=== PATIENT | male | born 1970 | race Caucasian/White ===

== ENCOUNTER 2017-02-02 15:04 | Emergency (ER) | payer BC ==
[2017-02-02] MEDS ORDERED: HEPARIN SODIUM 1000 UNIT/1 ML 10ML VIAL IVP ONE (15:20)
[2017-02-02] MEDS ORDERED: DILTIAZEM 25MG/5ML VIAL IV ONE (15:20)
--- NOTE | 2017-02-02 15:20 | Emergency Department Record ---
History of Present Illness - General Chief Complaint: Rapid heartbeat Stated Complaint: HIGH HEART RATE Time Seen by Provider: 02/02/17 15:09 Source: Patient Mode of Arrival: Ambulatory Limitations: No limitations - History of Present Illness Initial Comments: 46 yo male presents with rapid heart rate that was noted today. The patient has a history of HTN and elevated cholesterol. He is a patient of Dr White of [facility]. He recently had a change in medications. He was concerned about muscle cramps due to his medications. He came to the hospital today to have labs drawn regarding side effects of those medications. No chest pain. He has not been short of breath this week but he has had a dry non productive cough. He states walking or activity does not effect his breathing. He states he feels as normal as any other day except he can feel the rapid rate. No edema. He has been seen in the past and had event monitors that demonstrated brief AFib in 2016. The patient states that he will have palpitations several times a week that are brief in nature. Complaint: Rapid heart beat -: Days(s) Context: Occurred during rest Arrythmia History: Atrial fibrillation Associated Symptoms: Cough, Shortness of breath - Related Data Home Medications Medication Instructions Recorded Confirmed Last Taken Atorvastatin Calcium 40 mg PO DAILY 30 Days 02/02/17 02/02/17 Unknown Tadalafil [Cialis] 20 mg PO ASDIR 30 Days 02/02/17 02/02/17 Unknown Allergies Allergy/AdvReac Type Severity Reaction Status Date / Time No Known Drug Allergies Allergy Verified 02/02/17 15:14 Review of Systems Constitutional: Denies: Chills, Fever, Weakness Eyes: Denies: Eye discharge ENT: Reports: Throat pain. Denies: Congestion Respiratory: Reports: Cough (dry cough a few days). Denies: Dyspnea, Hemoptysis , Stridor, Wheezes Cardiovascular: Reports: Arrhythmia, Palpitations. Denies: Chest pain, Edema, Syncope Endocrine: Denies: Fatigue, Polydipsia, Polyuria Gastrointestinal: Denies: Abdominal pain, Diarrhea, Nausea, Vomiting Genitourinary: Denies: Dysuria, Hematuria, Urgency Musculoskeletal: Denies: Arthralgia, Back pain, Joint swelling, Myalgia, Neck pain Skin: Denies: Bruising, Change in color, Rash Neurological: Denies: Confusion, Headache, Weakness Psychiatric: Denies: Anxiety Hematological/Lymphatic: Denies: Blood Clots, Easy bleeding, Easy bruising, Swollen glands Past Medical History - SOCIAL HISTORY Smoking Status: Current every day smoker Drug Use: None - RESPIRATORY Hx Bronchitis: Yes Hx Pulmonary Embolism: No - CARDIOVASCULAR Hx Abnormal EKG: Yes (today, new onset a-fib) Hx Hypertension: Yes - NEURO Hx Neuro Disorders: No - GI Hx Reflux: Yes - Hx Genitourinary Disorders: No - ENDOCRINE Hx Endocrine Disorders: No - MUSCULOSKELETAL Hx Musculoskeletal Disorders: No - PSYCH Hx Psych Problems: No - HEMATOLOGY/ONCOLOGY Hx Hematology/Oncology Disorders: No Family Medical History Hx Diabetes: Grandparents Hx Heart Disease: Grandparents Physical Exam - General General Appearance: Alert, Oriented x3, Cooperative, No acute distress, Other ( Diaphoretic) Limitations: No limitations - Head Head exam: Atraumatic, Normocephalic, Normal inspection - Eye Eye exam: Normal appearance, PERRL. negative: Conjunctival injection, Scleral icterus - ENT ENT exam: Normal exam, Mucous membranes moist, Normal external ear exam, Normal orophraynx, TM's normal bilaterally Ear exam: Normal external inspection. negative: External canal tenderness Nasal Exam: Normal inspection. negative: Discharge, Sinus tenderness Mouth exam: Normal external inspection, Tongue normal Teeth exam: Normal inspection. negative: Dental caries Throat exam: Tonsillar erythema. negative: Normal inspection, Tonsillomegaly, Tonsillar exudate, R peritonsillar mass, L peritonsillar mass - Neck Neck exam: Normal inspection, Full ROM. negative: Tenderness - Respiratory Respiratory exam: negative: Accessory muscle use, Respiratory distress, Wheezes - Cardiovascular Cardiovascular Exam: Tachycardia - GI/Abdominal GI/Abdominal exam: Soft - Rectal Rectal exam: Deferred - exam: Deferred - Extremities Extremities exam: Normal inspection, Full ROM, Normal capillary refill. negative: Pedal edema, Tenderness - Back Back exam: Reports: Normal inspection, Full ROM. Denies: Muscle spasm, Rash noted, Tenderness - Neurological Neurological exam: Alert, Normal gait, Oriented X3, Reflexes normal - Psychiatric Psychiatric exam: Normal affect, Normal mood - Skin Skin exam: Dry, Intact, Normal color, Warm Course - Reevaluation(s) Reevaluation #1: the patient had labs prior arrival in the ED drwn at 14:01 CMP Glucose 118 BUN 12 and CR 0.8 K 3.3 CPK 289 02/02/17 15:33 Reevaluation #2: The CXR he had prior to arrival was negative for acute process The troponin is negative at 0.012 The BNP is elevated at 1080. The HR remains at 147-150 He is on Cardizem and Heparin 02/02/17 15:49 Reevaluation #3: Dr Stephens was paged. Awaiting call back [facility] contacted in the meantime to discuss with [facility] 02/02/17 16:05 Reevaluation #4: I SW Dr Lu of EP for [facility] He will accept the patient for transfer for the arrhythmia. 02/02/17 16:11 Strep screen is negative 02/02/17 16:51 Procedures - EKG Initial Date: 02/02/17 Time: 15:06 EKG: Abnormal EKG EKG Detail: Rate 150, Aflutter, RBBB, diffuse t changes Medical Decision Making - Lab Data Result diagrams: 02/02/17 15:00 Disposition Disposition: Transfer Clinical Impression: Atrial flutter Qualifiers: Atrial flutter type: typical Qualified Code(s): I48.3 - Typical atrial flutter Disposition: Acute Care Hospital Transfer Transfer To: [facility] Reason For Transfer: Atrial Flutter Accepting Physician: Dr Lu Time Discussed w/Accepting Physician: 16:13 Condition: (2) Stable Forms: Patient Portal Access Time of Disposition: 16:13
[2017-02-02] MEDS ORDERED: HEPARIN SODIUM/D5W 25,000 UNITS/500 ML BAG IV SCH (15:30)
[2017-02-02] MEDS ORDERED: DILTIAZEM HCL 125 MG in 0.9 % SODIUM CHLORIDE 100ML 100 ML IV SCH (15:30)
[2017-02-02 15:33] LABS: INR 0.92; PARTIAL THROMBOPLASTIN TIME 31.8 SECONDS (24.5-39.1); PROTHROMBIN TIME (PATIENT) 10.4 SECONDS (9.5-12.1)
[2017-02-02 15:40] LABS: CKMB 0.7 ug/L (0-6)
[2017-02-02 15:45] LABS: TROPONIN I < 0.012 ng/mL (0.00-0.034)
[2017-02-02 15:55] LABS: EOS % 2.6 % (0-6); GRAN % 65.6 % (47-80); HEMATOCRIT 45.9 % (42.0-52.0); HEMOGLOBIN 15.7 gm/dl (14.0-18.0); LYMPH % 16.3 % (16-45); MEAN CELL VOLUME 90.4 fl (81-97); MEAN CORPUSCULAR HEMOGLOBIN 30.9 pg (27-33); MEAN CORPUSCULAR HGB CONC 34.2 g/dl (32-36); MONO % 14.5 % (0-9); PLATELET COUNT 212 K/uL (130-400); RED BLOOD COUNT 5.08 M/uL (4.40-5.70); RED CELL DISTRIBUTION WIDTH 14.3 % (11.5-14.5); WHITE BLOOD COUNT W/O DIFF 8.9 K/uL (4.2-12.2)
[2017-02-02] MEDS ORDERED: POTASSIUM BICARB./CIT AC 25 MEQ EFF.TAB PO STA (15:56)
[2017-02-02 16:34] LABS: THYROID STIMULATING HORMONE 2.28 uIU/ml (0.465-4.68)
== END 2017-02-02 17:42 | disposition short-term general hospital (02) ==
LOC: ER 15:04
DX: I48.3 Typical atrial flutter (principal); R05 Cough; R06.02 Shortness of breath; I10 Essential (primary) hypertension; F17.210 Nicotine dependence, cigarettes, uncomplicated
CPT/HCPCS: 82553; 83735; 83880; 84443; 84484; 85025; 85610; 85730; 87880; 93005; 93010; 96365; 96366; 96368; 96375; 99285

== ENCOUNTER 2017-07-04 10:28 | Emergency (ER) | payer BC ==
--- NOTE | 2017-07-04 10:52 | Emergency Department Record ---
History of Present Illness - General Chief Complaint: Laceration(s) Stated Complaint: FOREHEAD GASH Time Seen by Provider: 07/04/17 10:32 Source: Patient Mode of Arrival: Ambulatory Limitations: No limitations - History of Present Illness Initial Commments: The patient is here due to getting hit in the forehead by a gate of a truck that one of his cows kicked open. He was closing the truck gate when the cow kicked the gate open. He then fell backwards onto the ground and got up immediately. He has no LOC and has had no nausea, vomiting, or dizziness since. He does have a mild CARRERA and also denies any neck pain. The patient did drive himself to the ER and is on Xarelto for intermittent Afib. His Immun. are UTD. Onset/Timin -: Minutes(s) Context: Accidental Associated Symptoms: None - Related Data Previous Rx's Medication Instructions Recorded Amoxicillin/Potassium Clav 1 tab PO BID #14 tab 07/04/17 [Augmentin 875-125 Tablet] Allergies Allergy/AdvReac Type Severity Reaction Status Date / Time No Known Drug Allergies Allergy Unverified 06/22/17 10:26 Review of Systems Constitutional: Denies: Chills, Fever Eyes: Denies: Eye discharge ENT: Denies: Congestion, Other Respiratory: Denies: Dyspnea Past Medical History - SOCIAL HISTORY Smoking Status: Current every day smoker Drug Use: None - RESPIRATORY Hx Bronchitis: Yes Hx Pulmonary Embolism: No - CARDIOVASCULAR Hx Abnormal EKG: Yes (today, new onset a-fib) Hx Hypertension: Yes - NEURO Hx Neuro Disorders: No - GI Hx Reflux: Yes - Hx Genitourinary Disorders: No - ENDOCRINE Hx Endocrine Disorders: No - MUSCULOSKELETAL Hx Musculoskeletal Disorders: No - PSYCH Hx Psych Problems: No - HEMATOLOGY/ONCOLOGY Hx Hematology/Oncology Disorders: No Family Medical History Hx Diabetes: Grandparents Hx Heart Disease: Grandparents Physical Exam - General General Appearance: Alert, Oriented x3, Cooperative, No acute distress - Head Head exam: Normocephalic. negative: Atraumatic (There is a large stellate laceration to his mid forehead.), Normal inspection Image of Face/Head: 1 - H - shaped Stellate laceration total 6 cm's - Eye Eye exam: Normal appearance, PERRL - Neck Neck exam: Normal inspection, Full ROM. negative: Tenderness (There is no Cspine tenderness and no pain with ROM.) - Respiratory Respiratory exam: Normal lung sounds bilaterally. negative: Respiratory distress - Cardiovascular Cardiovascular Exam: Regular rate, Normal rhythm, Normal heart sounds - GI/Abdominal GI/Abdominal exam: Soft, Normal bowel sounds. negative: Tenderness - Extremities Extremities exam: Normal inspection, Full ROM, Normal capillary refill. negative: Tenderness - Neurological Neurological exam: Alert, Normal gait, Oriented X3. negative: Abnormal gait, Motor sensory deficit Course - Reevaluation(s) Reevaluation #1: Procedure note: The large stellate lac was anesth. with 5 cc's Lido 1% with Epi. The wound was prepped sterile fashion and lavaged with sterile saline. The wound was down to the bone but due to the Xarelto I was unable to place deep sutures due to the extent of the trauma and extensive bleeding. I did place 18 4.0 sutures to close the laceration. 07/04/17 12:20 Reevaluation #2: The patient is doing well. He denies any headache or nausea. I did explain to him due to the extent of the head trauma he will need to be admitted to the hospital overnight for monitoring. I did discuss the case with Dr. Dunn in the ER at [facility] who does accept him their. I also did discuss the case with Dr. Lira for Trauma and he also agrees with the transfer and will admit him for trauma. 07/04/17 12:18 Reevaluation #3: The patient is doing very well at this time. He denies any CARRERA or nausea. 07/04/17 12:22 Medical Decision Making - Data Complexity MDM Data: Labs Ordered and/or Reviewed, X-Ray Ordered and/or Reviewed - Lab Data Result diagrams: 07/04/17 10:38 07/04/17 10:38 - Radiology Data Radiology results: Report reviewed (Head CT: Neg for acute intracranial abnormality or skull fx, Positive maxillary sinusitis.) Disposition Disposition: Transfer Clinical Impression: Head injury due to trauma Qualifiers: Encounter type: initial encounter Qualified Code(s): S09.90XA - Unspecified injury of head, initial encounter Disposition: Acute Care Hospital Transfer Transfer To: [facility] Reason For Transfer: Trauma Accepting Physician: Shaun/ Soraya Time Discussed w/Accepting Physician: 12:20 Condition: (2) Stable Instructions: Laceration (ED) Prescriptions: Amoxicillin/Potassium Clav [Augmentin 875-125 Tablet] 1 tab PO BID #14 tab Forms: Patient Portal Access Time of Disposition: 12:20 Quality - Quality Measures Quality Measures: N/A - Blood Pressure Screening View Details: Yes Does Patient Have Any of the Following: No, Active Dx of HTN Blood Pressure Classification: Hypertensive Reading Systolic Measurement: 150 Diastolic Measurement: 103 Screening for High Blood Pressure: Patient Exclusion, Hx of HTN [G9744]
[2017-07-04 10:55] LABS: BASO % 0.6 % (0-6); EOS % 5.4 % (0-6); GRAN % 58.7 % (47-80); HEMATOCRIT 43.8 % (42.0-52.0); HEMOGLOBIN 15.1 gm/dl (14.0-18.0); LYMPH % 26.6 % (16-45); MEAN CORPUSCULAR HEMOGLOBIN 30.7 pg (27-33); MEAN CORPUSCULAR HGB CONC 34.5 g/dl (32-36); MEAN PLATELET VOLUME 10.4 fl (7.4-10.4); MONO % 8.7 % (0-9); PLATELET COUNT 217 K/uL (130-400); RED BLOOD COUNT 4.92 M/uL (4.40-5.70); RED CELL DISTRIBUTION WIDTH 13.6 % (11.5-14.5); WHITE BLOOD COUNT W/O DIFF 7.7 K/uL (4.2-12.2)
[2017-07-04 11:15] LABS: PARTIAL THROMBOPLASTIN TIME 31.3 SECONDS (24.5-39.1); PROTHROMBIN TIME (PATIENT) 10.8 SECONDS (9.5-12.1)
[2017-07-04] MEDS ORDERED: LIDOCAINE 1% W/EPI 1:200,000 MPF 30ML SQ ONE (11:17)
[2017-07-04 12:01] LABS: BLOOD UREA NITROGEN 10 mg/dL (6-20); CREATININE 0.6 mg/dL (0.7-1.2); EST GLOMERULAR FILTRATION RATE > 60 mL/min; GLUCOSE,RANDOM 103 mg/dL (74-109)
[2017-07-04] MEDS ORDERED: AMOXICILLIN/POTASSIUM CLAV 875MG/125MG TABLET PO ONE (12:23)
[2017-07-04] MEDS ORDERED: ACETAMINOPHEN 325 MG TAB PO ONE (12:37)
--- NOTE | 2017-07-05 13:43 | CT SCAN REPORT ---
EXAM: HEAD CT HISTORY: LACERATION TO THE LEFT FOREHEAD. TECHNIQUE: Noncontrast head CT was obtained. Comparison: None. Encounter: Initial. Hand dominance: Right. FINDINGS: The ventricles and subarachnoid spaces are unremarkable. There is no mass or mass effect. No intra or extraaxial hemorrhage. There is soft tissue swelling and laceration in the mid forehead region. There is no fracture or acute osseous abnormality. No CT evidence for large acute territorial infarct. There is an air fluid level in the right maxillary sinus. Mild mucosal thickening is seen in the left maxillary sinus. IMPRESSION: 1. NO MASS, HEMORRHAGE, OR ACUTE INTRACRANIAL PROCESS. 2. LACERATION AND SOFT TISSUE SWELLING IN THE MID FOREHEAD JUST TO THE RIGHT OF MIDLINE. 3. AIR FLUID LEVEL IN THE RIGHT MAXILLARY SINUS SUGGESTING SINUSITIS. 4. MILD MUCOSAL THICKENING IN THE LEFT MAXILLARY SINUS AND SOME OF THE ETHMOID AIR CELLS. JOB NUMBER: [id number] MTDD
== END 2017-07-04 13:26 | disposition short-term general hospital (02) ==
LOC: ER 10:28
DX: S01.81XA Laceration without foreign body of other part of head, initial encounter (principal); R51 Headache; I48.91 Unspecified atrial fibrillation; Z79.01 Long term (current) use of anticoagulants; F17.210 Nicotine dependence, cigarettes, uncomplicated; W22.8XXA Striking against or struck by other objects, initial encounter; Y93.K9 Activity, other involving animal care
CPT/HCPCS: 12014; 70450; 80048; 85025; 85610; 85730; 99285

== ENCOUNTER 2017-07-13 13:38 | Emergency (ER) | payer BC ==
[2017-07-13] MEDS ORDERED: ONDANSETRON HCL IV 4 MG/2 ML VIAL IVP ONE (13:55)
[2017-07-13] MEDS ORDERED: 0.9 % SODIUM CHLORIDE 1,000 ML BAG IV ONE (13:55)
[2017-07-13] MEDS ORDERED: MORPHINE SULFATE 5 MG/ML PFS IVP ONE (13:56)
--- NOTE | 2017-07-13 13:57 | Emergency Department Record ---
History of Present Illness - General Chief Complaint: Headache Migraine Stated Complaint: CARRERA AFTER HEAD INJURY Time Seen by Provider: 07/13/17 13:49 Source: Patient, Family Mode of Arrival: Wheelchair Limitations: No limitations - History of Present Illness Initial Comments: 47 yo male presents with headache since a head injury on 07/04/17. He was hit in the head by a tailgate that was kicked by a cow. He was seen in the ED at that time. He had a laceration repair. His HCT was negative. Due to the head injury and being on Xarelto he was made a trauma consult and transferred to [facility] the care of the Trauma service. He he had a return of headache with nausea, light sensitivity. He reports some headaches, some nausea, dizziness over the last week. Today the headache mostly on the right has not resolved. He took his Oxycontin about 30 minutes ago and is now feeling some relief. 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 in the last year?: No - Additonal Travel Details Have you been exposed to anyone with a communicable illness?: No - Travel Symptoms Symptom Screening: None Review of Systems Constitutional: Denies: Chills, Fever Eyes: Reports: Photophobia. Denies: Eye discharge, Eye pain, Vision change ENT: Denies: Congestion, Throat pain Respiratory: Denies: Cough Cardiovascular: Denies: Chest pain, Palpitations, Syncope Endocrine: Denies: Fatigue Gastrointestinal: Reports: Nausea, Vomiting. Denies: Abdominal pain, Diarrhea Musculoskeletal: Denies: Arthralgia, Back pain, Neck pain Skin: Denies: Bruising, Change in color, Rash Neurological: Reports: Headache, Vertigo. Denies: Abnormal gait, Confusion, Numbness, Seizure, Tingling, Tremors, Weakness Psychiatric: Denies: Anxiety Hematological/Lymphatic: Denies: Anemia, Blood Clots, Easy bleeding, Easy bruising, Swollen glands Past Medical History - SOCIAL HISTORY Smoking Status: Current every day smoker Alcohol Use: Occasional Drug Use: None - RESPIRATORY Hx Respiratory Disorders: Yes Hx Bronchitis: Yes Hx Pulmonary Embolism: No - CARDIOVASCULAR Hx Abnormal EKG: Yes (today, new onset a-fib) Hx Hypertension: Yes - NEURO Hx Neuro Disorders: No - GI Hx GI Disorders: Yes Hx Reflux: Yes - Hx Genitourinary Disorders: No - ENDOCRINE Hx Endocrine Disorders: No - MUSCULOSKELETAL Hx Musculoskeletal Disorders: No - PSYCH Hx Psych Problems: No - HEMATOLOGY/ONCOLOGY Hx Hematology/Oncology Disorders: No Family Medical History Any Significant Family History?: No Hx Diabetes: Grandparents Hx Heart Disease: Grandparents Physical Exam - General General Appearance: Alert, Oriented x3, Cooperative, No acute distress Limitations: No limitations - Head Head exam: Atraumatic, Normocephalic, Normal inspection, Other (Well healed forehead laceration) - Eye Eye exam: Normal appearance. negative: Conjunctival injection, Periorbital swelling - ENT ENT exam: Normal exam, Mucous membranes moist Ear exam: Normal external inspection Nasal Exam: Normal inspection Mouth exam: Normal external inspection - Neck Neck exam: Normal inspection, Full ROM. negative: Tenderness - Respiratory Respiratory exam: Normal lung sounds bilaterally. negative: Respiratory distress - Cardiovascular Cardiovascular Exam: Regular rate, Normal rhythm, Normal heart sounds Peripheral Pulses: 2+: Radial (R), Radial (L) - GI/Abdominal GI/Abdominal exam: Soft. negative: Tenderness - Rectal Rectal exam: Deferred - exam: Deferred - Extremities Extremities exam: Normal inspection, Full ROM, Normal capillary refill. negative: Tenderness Course Vital Signs 07/13/17 13:40 Temperature 98.5 F Pulse Rate 65 Respiratory 16 Rate Blood Pressure 150/92 Pulse Ox 99 - Reevaluation(s) Reevaluation #1: 07/13/17 15:16 There are no acute changes on the labs. The HCT was read as paranasal sinusitis otherwise negative. No hemorrhage. 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) 07/13/17 16:09 Medical Decision Making - Lab Data Result diagrams: 07/13/17 14:22 07/13/17 14:22 Disposition Disposition: Discharge Clinical Impression: Concussion Qualifiers: Encounter type: initial encounter Loss of consciousness presence/duration: without LOC Qualified Code(s): S06.0X0A - Concussion without loss of consciousness, initial encounter Disposition: Home, Self-Care Condition: (1) Good Instructions: Concussion (ED) Additional Instructions: Call your doctor for close follow up Return if worse, fever, or any new concerns or symptoms Rest and avoid over exertion and over stimulation Prescriptions: Budesonide [Rhinocort Allergy] 5 ml NS DAILY #1 spray.pump Ondansetron [Zofran Odt] 4 mg PO Q8H #12 tab.rapdis Forms: Patient Portal Access Time of Disposition: 15:20 Quality - Quality Measures Quality Measures: N/A - Blood Pressure Screening Does Patient Have Any of the Following: No Blood Pressure Classification: Hypertensive Reading Systolic Measurement: 155 Diastolic Measurement: 97 Screening for High Blood Pressure: < Pre-Hypertensive BP, F/U Documented > [ [id number]] Pre-Hypertensive Follow-up Interventions: Referral to alternative/primary care provider.
[2017-07-13] MEDS ORDERED: ACETAMINOPHEN 1,000 MG/100 ML BTL IVPB ONE (14:05)
[2017-07-13 14:31] LABS: EOS % 5.9 % (0-6); GRAN % 55.6 % (47-80); HEMATOCRIT 42.9 % (42.0-52.0); HEMOGLOBIN 15.3 gm/dl (14.0-18.0); LYMPH % 28.8 % (16-45); MEAN CELL VOLUME 87.9 fl (81-97); MEAN CORPUSCULAR HEMOGLOBIN 31.4 pg (27-33); MEAN CORPUSCULAR HGB CONC 35.7 g/dl (32-36); MEAN PLATELET VOLUME 10.1 fl (7.4-10.4); MONO % 8.7 % (0-9); PLATELET COUNT 236 K/uL (130-400); RED BLOOD COUNT 4.88 M/uL (4.40-5.70); RED CELL DISTRIBUTION WIDTH 13.1 % (11.5-14.5); WHITE BLOOD COUNT W/O DIFF 7.3 K/uL (4.2-12.2)
[2017-07-13 14:43] LABS: INR 0.98; PARTIAL THROMBOPLASTIN TIME 30.5 SECONDS (24.5-39.1); PROTHROMBIN TIME (PATIENT) 10.6 SECONDS (9.5-12.1)
[2017-07-13 14:47] LABS: BLOOD UREA NITROGEN 13 mg/dL (6-20); CREATININE 0.7 mg/dL (0.7-1.2); EST GLOMERULAR FILTRATION RATE > 60 mL/min; GLUCOSE,RANDOM 137 mg/dL (74-109)
--- NOTE | 2017-07-14 11:26 | CT SCAN REPORT ---
EXAM: CT SCAN HEAD WO CONTRAST HISTORY: FOLLOW-UP HEAD INJURY AND HEADACHES. TECHNIQUE: CT of the brain without contrast. COMPARISON: Prior CT brain from 07/04/17. FINDINGS: The globes are intact. Polyps of the maxillary sinuses, ethmoid air cells, and sphenoid sinuses. No displaced or depressed skull fracture. No intra or extraaxial hemorrhage. CT is limited for the evaluation of acute infarct. No CT evidence for large or territorial acute infarct. No mass, mass effect, or midline shift. IMPRESSION: RESIDUAL PARANASAL SINUSITIS. NO ACUTE INTRACRANIAL ABNORMALITY. JOB NUMBER: [id number] MTDD
== END 2017-07-13 15:39 | disposition home or self-care (01) ==
LOC: ER 13:38
DX: S06.0X0A Concussion without loss of consciousness, initial encounter (principal); R11.0 Nausea; R42 Dizziness and giddiness; Z79.01 Long term (current) use of anticoagulants; W22.8XXA Striking against or struck by other objects, initial encounter; Y93.K9 Activity, other involving animal care
CPT/HCPCS: 99284; 96365; 96375; 96361; 99285; 85025; 85730; 85610; 80048; 70450; J2405; J7030

== ENCOUNTER 2017-08-05 14:03 | Emergency (ER) | payer BC ==
--- NOTE | 2017-08-05 14:31 | Emergency Department Record ---
History of Present Illness - General Chief Complaint: Chest Pain Stated Complaint: CHEST DISCOMFORT AND CARRERA Time Seen by Provider: 08/05/17 14:18 Source: Patient Mode of Arrival: Ambulatory Limitations: No limitations - History of Present Illness Initial Comments: The patient is here due to having a headache for the last month since he injured his head and sustained a concussion. He is on Xarelto and did have a significant head injury last month and was admitted to the trauma service at [facility] overnight. Since he has had significant headaches off and on and they have been very bad for the last week. He also has had some vague mild L chest aching when the head pain gets bad. He states the pain is mild and nonradiating and only lasts a few minutes. There is mild SOB at times with the pain but no nausea or sweating. The patient was at the [facility] today for the head pain and told them about his CP so he was sent to the ER. The patient did have a cardiac ablation for Afib 2 months ago and has been doing well since. Onset/Timin -: Days(s) Onset: Other Pain Location: Left chest Severity scale (1-10): 3 Quality: Aching Consistency: Intermittent, Now resolved Context: Trauma/injury Treatments Prior to Arrival: None - Related Data Previous Rx's Medication Instructions Recorded Budesonide [Rhinocort Allergy] 5 ml NS DAILY #1 spray.pump 07/13/17 Potassium Chloride 10 meq PO DAILY #30 tablet.er 08/05/17 Allergies Allergy/AdvReac Type Severity Reaction Status Date / Time No Known Drug Allergies Allergy Verified 08/05/17 14:17 Travel Screening - Travel/Exposure Within Last 30 Days Have you traveled within the last 30 days?: No - Travel/Exposure Within Last Year Have you traveled outside the [place] in the last year?: No - Additonal Travel Details Have you been exposed to anyone with a communicable illness?: No Review of Systems Constitutional: Denies: Chills, Fever Eyes: Denies: Eye discharge ENT: Denies: Congestion Respiratory: Denies: Cough, Dyspnea Past Medical History - SOCIAL HISTORY Smoking Status: Current every day smoker Alcohol Use: Occasional Drug Use: None - RESPIRATORY Hx Respiratory Disorders: Yes Hx Bronchitis: Yes Hx Pulmonary Embolism: No - CARDIOVASCULAR Hx Abnormal EKG: Yes (today, new onset a-fib) Hx Hypertension: Yes - NEURO Hx Neuro Disorders: No - GI Hx GI Disorders: Yes Hx Reflux: Yes - Hx Genitourinary Disorders: No - ENDOCRINE Hx Endocrine Disorders: No - MUSCULOSKELETAL Hx Musculoskeletal Disorders: No - PSYCH Hx Psych Problems: No - HEMATOLOGY/ONCOLOGY Hx Hematology/Oncology Disorders: No Family Medical History Any Significant Family History?: No Hx Diabetes: Grandparents Hx Heart Disease: Grandparents Physical Exam - General General Appearance: Alert, Oriented x3, Cooperative, No acute distress - Head Head exam: Atraumatic, Normocephalic, Normal inspection - Eye Eye exam: Normal appearance, PERRL - ENT Throat exam: Normal inspection. negative: Tonsillar erythema, Tonsillar exudate - Neck Neck exam: Normal inspection, Full ROM. negative: Tenderness - Respiratory Respiratory exam: Normal lung sounds bilaterally. negative: Respiratory distress - Cardiovascular Cardiovascular Exam: Regular rate, Normal rhythm, Normal heart sounds - GI/Abdominal GI/Abdominal exam: Soft, Normal bowel sounds. negative: Tenderness - Extremities Extremities exam: Normal inspection, Full ROM, Normal capillary refill. negative: Tenderness - Back Back exam: Reports: Normal inspection, Full ROM. Denies: Muscle spasm, Rash noted, Tenderness - Neurological Neurological exam: Alert, Normal gait, Oriented X3. negative: Abnormal gait, Motor sensory deficit - Psychiatric Psychiatric exam: negative: Anxious, Depressed - Skin Skin exam: negative: Rash Course Vital Signs 08/05/17 14:08 Temperature 98.7 F Pulse Rate 75 Respiratory 16 Rate Blood Pressure 160/106 Pulse Ox 98 - Reevaluation(s) Reevaluation #1: The patient is doing much better at this time. He is resting comfortably talking on his cell phone. His CARRERA has completely resolved with the Tylenol and he denies any CP or SOB. 08/05/17 15:20 Reevaluation #2: The patient is doing very well at this time. He denies any CARRERA or CP and is resting comfortably. I did explain to him that his xrays and lab work are basically normal and I am not sure what is causing his CP. Due to the fact he has a hx of HTN and tobacco use I did recommend hospital admission. The patient is presently refusing the plan. I did explain to him that the risks of leaving the hospital are that he could leave and have an HI, stroke, become disabled and even at home. He presently has proper decision making capacity and understands we cannot be held liable for NOT admitting him to the hospital or any issues that arrise due to his leaving AMA. He is instructed to see his PCP ERIN and to return to the ER for any problems or further pain. 08/05/17 16:18 Medical Decision Making - Data Complexity MDM Data: Labs Ordered and/or Reviewed, X-Ray Ordered and/or Reviewed, EKG Ordered and/or Reviewed - Lab Data Result diagrams: 08/05/17 14:15 08/05/17 14:15 - EKG Data -: EKG Interpreted by Me EKG: No Acute Changes, Normal EKG, Unchanged From Previous - Radiology Data Radiology results: Report reviewed (CXR: Neg. Head CT: No acute changes.) Disposition Disposition: Discharge Clinical Impression: Headache Qualifiers: Headache type: other headache syndrome Qualified Code(s): G44.89 - Other headache syndrome Disposition: Against Medical Advice Condition: (2) Stable Instructions: Chest Pain (ED) Additional Instructions: Please see your PCP early next week for recheck of the pain and BP. Please use Tylenol for pain and take the potassium as directed. Please return to the ER for any pain, fever, nausea, vomiting, or elevated BP. Prescriptions: Potassium Chloride 10 meq PO DAILY #30 tablet.er Forms: Patient Portal Access Time of Disposition: 16:24 Quality - Quality Measures Quality Measures: N/A - Blood Pressure Screening View Details: Yes Does Patient Have Any of the Following: No, Active Dx of HTN Blood Pressure Classification: Hypertensive Reading Systolic Measurement: 134 Diastolic Measurement: 91 Screening for High Blood Pressure: Patient Exclusion, Hx of HTN [G9744]
[2017-08-05] MEDS ORDERED: ACETAMINOPHEN 325 MG TAB PO ONE (14:34)
[2017-08-05 14:47] LABS: BASO % 0.7 % (0-6); EOS % 4.8 % (0-6); GRAN % 54.6 % (47-80); HEMATOCRIT 44.5 % (42.0-52.0); HEMOGLOBIN 15.4 gm/dl (14.0-18.0); LYMPH % 31.6 % (16-45); MEAN CELL VOLUME 90.1 fl (81-97); MEAN CORPUSCULAR HEMOGLOBIN 31.2 pg (27-33); MEAN CORPUSCULAR HGB CONC 34.6 g/dl (32-36); MEAN PLATELET VOLUME 10.4 fl (7.4-10.4); MONO % 8.3 % (0-9); PLATELET COUNT 231 K/uL (130-400); RED BLOOD COUNT 4.94 M/uL (4.40-5.70); RED CELL DISTRIBUTION WIDTH 13.8 % (11.5-14.5); WHITE BLOOD COUNT W/O DIFF 8.3 K/uL (4.2-12.2)
[2017-08-05 15:01] LABS: INR 0.96; PARTIAL THROMBOPLASTIN TIME 30.6 SECONDS (24.5-39.1); PROTHROMBIN TIME (PATIENT) 10.4 SECONDS (9.5-12.1)
[2017-08-05 15:05] LABS: BLOOD UREA NITROGEN 17 mg/dL (6-20); CKMB 1.2 ng/mL (<6.73); CREATINE PHOSPHOKINASE 47 U/L (39-308); CREATININE 0.8 mg/dL (0.7-1.2); EST GLOMERULAR FILTRATION RATE > 60 mL/min; GLUCOSE,RANDOM 116 mg/dL (74-109)
[2017-08-05] MEDS ORDERED: POTASSIUM CHLORIDE 20 MEQ TABLET PO ONE (15:07)
--- NOTE | 2017-08-06 08:25 | RADIOLOGY REPORT ---
EXAM: CHEST, TWO VIEWS HISTORY: ACUTE CHEST PRESSURE. TECHNIQUE: Two views of the chest were obtained. Comparison: Chest x-ray 02/02/17. FINDINGS: The lungs are clear. The cardiac silhouette, diaphragm, and osseous structures are unremarkable for age. IMPRESSION: NEGATIVE CHEST EXAMINATION. JOB NUMBER: [id number] MTDD
--- NOTE | 2017-08-06 08:28 | CT SCAN REPORT ---
EXAM: HEAD CT WITHOUT CONTRAST HISTORY: GENERALIZED HEADACHE FOR TEN DAYS, INTRACTABLE. TECHNIQUE: Contiguous axial images from the cerebral convexities to the foramen magnum were obtained without IV contrast. Comparison: Head CT 07/13/17. Encounter: Initial. Hand dominance: Right. FINDINGS: The brain volume is normal. No acute intracranial hemorrhage, mass effect, or midline shift. No CT evidence of acute infarct. The ventricles, basal cisterns and sulci are within normal limits. Mild mucosal thickening anterior ethmoid air cells. The osseous structures and soft tissues are unremarkable. IMPRESSION: 1. NO ACUTE INTRACRANIAL PROCESS WITH NO INTERVAL CHANGE. 2. MILD MUCOSAL THICKENING IN THE ETHMOID AIR CELLS. JOB NUMBER: [id number] MTDD
== END 2017-08-05 16:28 | disposition left against medical advice (07) ==
LOC: ER 14:03
DX: F07.81 Postconcussional syndrome (principal); G44.319 Acute post-traumatic headache, not intractable; R07.89 Other chest pain; I48.91 Unspecified atrial fibrillation; R06.02 Shortness of breath; I10 Essential (primary) hypertension; F17.210 Nicotine dependence, cigarettes, uncomplicated; Z79.01 Long term (current) use of anticoagulants
CPT/HCPCS: 70450; 71020; 80048; 82550; 82553; 84484; 85025; 85610; 85730; 93005; 93010; 99284

== ENCOUNTER 2018-12-27 07:25 | Emergency (ER) | payer BC ==
--- NOTE | 2018-12-27 07:39 | Emergency Department Record ---
History of Present Illness - General Chief complaint: Nausea, Vomiting, Diarrhea Stated complaint: DIARRHEA Time Seen by Provider: 12/27/18 07:34 Source: Patient Mode of Arrival: Ambulatory Limitations: No limitations - History of Present Illness Initial comments: The patient is here due to a 2 day hx of diarrhea. The patient got back from the [place] 4 days ago and developed frequent loose watery stools with abdominal cramping 2 days ago. He denies any nausea, vomiting, fever, abdominal pain or blood in the stools. The patient's is also ill with similar symptoms. MD complaint: Diarrhea Onset/Timin -: Days(s) Description of Vomiting: Watery Radiation: None Consistency: Intermittent Improves with: None Worsens with: None Associated Symptoms: Denies other symptoms - Related Data Allergies Allergy/AdvReac Type Severity Reaction Status Date / Time No Known Drug Allergies Allergy Unverified 09/23/17 14:16 Travel Screening - Travel/Exposure Within Last 30 Days Have you traveled within the last 30 days?: Yes Location Detail:: [facility] - Travel/Exposure Within Last Year Have you traveled outside the [place] in the last year?: Yes Location Detail:: [place] - Additonal Travel Details Have you been exposed to anyone with a communicable illness?: No - Travel Symptoms Symptom Screening: Diarrhea Review of Systems Constitutional: Denies: Chills, Fever, Malaise Eyes: Denies: Eye discharge ENT: Denies: Congestion Respiratory: Denies: Cough Cardiovascular: Denies: Arrhythmia Endocrine: Denies: Fatigue Gastrointestinal: Reports: Diarrhea Genitourinary: Denies: Dysuria Musculoskeletal: Denies: Arthralgia Skin: Denies: Bruising Past Medical History - SOCIAL HISTORY Smoking Status: Current every day smoker - RESPIRATORY Hx Respiratory Disorders: Yes Hx Bronchitis: Yes Hx Pulmonary Embolism: No - CARDIOVASCULAR Hx Cardio Disorders: Yes Hx Abnormal EKG: Yes (today, new onset a-fib) Hx Hypertension: Yes - NEURO Hx Neuro Disorders: No - GI Hx GI Disorders: Yes Hx Reflux: Yes - Hx Genitourinary Disorders: No - ENDOCRINE Hx Endocrine Disorders: No - MUSCULOSKELETAL Hx Musculoskeletal Disorders: No - PSYCH Hx Psych Problems: No - HEMATOLOGY/ONCOLOGY Hx Hematology/Oncology Disorders: No Family Medical History Any Significant Family History?: Yes Hx Diabetes: Grandparents Hx Heart Disease: Grandparents Physical Exam - General General Appearance: Alert, Oriented x3, Cooperative, No acute distress - Head Head exam: Atraumatic - Eye Eye exam: Normal appearance, PERRL - Neck Neck exam: Normal inspection, Full ROM. negative: Tenderness - Respiratory Respiratory exam: Normal lung sounds bilaterally. negative: Respiratory distress - Cardiovascular Cardiovascular Exam: Regular rate, Normal rhythm, Normal heart sounds - GI/Abdominal GI/Abdominal exam: Soft, Normal bowel sounds. negative: Distended, Guarding, Rebound, Rigid, Tenderness (The patient's abdomen is very soft and nontender.) - Extremities Extremities exam: Normal inspection, Full ROM, Normal capillary refill. negative: Tenderness - Neurological Neurological exam: Alert. negative: Motor sensory deficit - Psychiatric Psychiatric exam: negative: Anxious - Skin Skin exam: negative: Rash Course Vital Signs 12/27/18 07:27 Temperature 97.6 F Pulse Rate 86 Respiratory 20 Rate Blood Pressure 149/96 Pulse Ox 96 - Reevaluation(s) Reevaluation #1: The patient is doing very well at this time. He denies any AP, nausea, or fevers presently and he is drinking water well. I did explain that the evaluation does not demonstrate any bacterial infection in the stool. We also will check the stool culture but that will take a few days to come back. 12/27/18 08:38 Medical Decision Making - Lab Data Result diagrams: 12/27/18 07:40 12/27/18 07:40 Disposition Disposition: Discharge Clinical Impression: Diarrhea Qualifiers: Diarrhea type: unspecified type Qualified Code(s): R19.7 - Diarrhea, unspecified Disposition: Home, Self-Care Condition: (2) Stable Instructions: Acute Diarrhea (ED) Additional Instructions: Please drink plenty of fluids and use an OTC anti-diarrheal medicine as needed. Please see your family doctor for recheck later this week if not better and return to the ER for any worsening symptoms. Please also see your family doctor later this month to have your liver enzymes rechecked. Forms: Patient Portal Access Time of Disposition: 08:37 Quality - Quality Measures Quality Measures: N/A - Blood Pressure Screening View Details: Yes Does Patient Have Any of the Following: No Blood Pressure Classification: Hypertensive Reading Systolic Measurement: 149 Diastolic Measurement: 96 Screening for High Blood Pressure: < First Hypertensive BP, F/U Documented > [ G8950] First Hypertensive Follow-up Interventions: Referral to alternative/primary care provider.
[2018-12-27 07:48] LABS: BASO % 0.9 % (0-6); EOS % 5.3 % (0-6); GRAN % 60.1 % (47-80); HEMATOCRIT 45.9 % (42.0-52.0); HEMOGLOBIN 15.7 gm/dl (14.0-18.0); LYMPH % 22.7 % (16-45); MEAN CORPUSCULAR HEMOGLOBIN 30.4 pg (27-33); MEAN CORPUSCULAR HGB CONC 34.2 g/dl (32-36); MEAN PLATELET VOLUME 9.7 fl (7.4-10.4); PLATELET COUNT 226 K/uL (130-400); RED BLOOD COUNT 5.16 M/uL (4.40-5.70); RED CELL DISTRIBUTION WIDTH 14.3 % (11.5-14.5); WHITE BLOOD COUNT W/O DIFF 8.9 K/uL (4.2-12.2)
[2018-12-27 08:02] LABS: BLOOD UREA NITROGEN 12 mg/dL (6-20); CREATININE 0.5 mg/dL (0.7-1.2); EST GLOMERULAR FILTRATION RATE > 60 mL/min
[2018-12-27 08:03] LABS: LIPASE 20 U/L (13-60); TOTAL PROTEIN 6.8 g/dL (6.6-8.7)
[2018-12-27 08:05] LABS: GLUCOSE,RANDOM 100 mg/dL (74-109)
[2018-12-27 08:07] LABS: ALT/SGPT 44 U/L (<41); AST/SGOT 17 U/L (10.0-50.0)
[2018-12-27 08:08] LABS: ALB/GLOB RATIO 1.3 (1.1-1.8); ALBUMIN 3.9 g/dL (4.0-5.0); ALKALINE PHOSPHATASE 83 U/L (40-129)
[2018-12-27 08:22] LABS: STOOL FOR POLYS NO WBC'S OBSERVED (NO WBC'S)
[2018-12-27 09:48] LABS: CRYPTOSPORIDIUM PARVUM ANTIGEN NOT DETECTED (NOT DETECT); GIARDIA LAMBLIA ANTIGEN NOT DETECTED (NOT DETECT)
--- NOTE | 2018-12-29 15:10 | Emergency Department Record ---
History of Present Illness - General Chief complaint: Nausea, Vomiting, Diarrhea Stated complaint: DIARRHEA Time Seen by Provider: 12/27/18 07:34 Source: Patient Mode of Arrival: Ambulatory Limitations: No limitations - History of Present Illness MD complaint: Diarrhea Onset/Timin -: Days(s) Description of Vomiting: Watery Radiation: None Consistency: Intermittent Improves with: None Worsens with: None Associated Symptoms: Denies other symptoms - Related Data Allergies Allergy/AdvReac Type Severity Reaction Status Date / Time No Known Drug Allergies Allergy Unverified 09/23/17 14:16 Travel Screening - Travel/Exposure Within Last 30 Days Have you traveled within the last 30 days?: Yes Location Detail:: [place] - Travel/Exposure Within Last Year Have you traveled outside the [place] in the last year?: Yes Location Detail:: [place] - Additonal Travel Details Have you been exposed to anyone with a communicable illness?: No - Travel Symptoms Symptom Screening: Diarrhea Review of Systems Constitutional: Denies: Chills, Fever, Malaise Eyes: Denies: Eye discharge ENT: Denies: Congestion Respiratory: Denies: Cough Cardiovascular: Denies: Arrhythmia Endocrine: Denies: Fatigue Gastrointestinal: Reports: Diarrhea Genitourinary: Denies: Dysuria Musculoskeletal: Denies: Arthralgia Skin: Denies: Bruising Past Medical History - SOCIAL HISTORY Smoking Status: Current every day smoker - RESPIRATORY Hx Respiratory Disorders: Yes Hx Bronchitis: Yes Hx Pulmonary Embolism: No - CARDIOVASCULAR Hx Cardio Disorders: Yes Hx Abnormal EKG: Yes (today, new onset a-fib) Hx Hypertension: Yes - NEURO Hx Neuro Disorders: No - GI Hx GI Disorders: Yes Hx Reflux: Yes - Hx Genitourinary Disorders: No - ENDOCRINE Hx Endocrine Disorders: No - MUSCULOSKELETAL Hx Musculoskeletal Disorders: No - PSYCH Hx Psych Problems: No - HEMATOLOGY/ONCOLOGY Hx Hematology/Oncology Disorders: No Family Medical History Any Significant Family History?: Yes Hx Diabetes: Grandparents Hx Heart Disease: Grandparents Physical Exam - General Limitations: No limitations Course Vital Signs 12/27/18 12/27/18 07:27 08:51 Temperature 97.6 F Pulse Rate 86 87 Respiratory 20 18 Rate Blood Pressure 149/96 143/97 Pulse Ox 96 95 - Reevaluation(s) Reevaluation #1: Addendum to the original chart dated 12/26. I did inform the patient of the Enterotoxigenic E. coli in the stool. The patient states he and his are doing a lot better at this time. His is back to work today and the patient has had no further diarrheal stools today. I also informed the patient of the need to see his PCP Connie ([employer]) for recheck and to be tested to be sure the E. Coli is gone from the stool. I also did discuss the case with Connie and she is aware of the stool results and did assure F/U. We did fax the result over to the office. 12/29/18 15:06 Medical Decision Making - Lab Data Result diagrams: 12/27/18 07:40 12/27/18 07:40 Lab Results 12/27/18 12/27/18 12/27/18 Range/Units 07:40 07:40 07:50 WBC 8.9 (4.2-12.2) K/uL RBC 5.16 (4.40-5.70) M/uL Hgb 15.7 (14.0-18.0) gm/dl Hct 45.9 (42.0-52.0) % MCV 89.0 (81-97) fl MCH 30.4 (27-33) pg MCHC 34.2 (32-36) g/dl RDW 14.3 (11.5-14.5) % Plt Count 226 (130-400) K/uL MPV 9.7 (7.4-10.4) fl Gran % 60.1 (47-80) % Lymphocytes % 22.7 (16-45) % Monocytes % 11.0 H (0-9) % Eosinophils % 5.3 (0-6) % Basophils % 0.9 (0-6) % Sodium 141 (136-145) mmol/L Potassium 3.5 (3.4-4.5) mmol/L Chloride 105 (98-107) mmol/L Carbon Dioxide 23.0 (22-29) mmol/L Anion Gap 13.0 (7-16) BUN 12 (6-20) mg/dL Creatinine 0.5 L (0.7-1.2) mg/dL Estimated GFR > 60 mL/min Random Glucose 100 (74-109) mg/dL Calcium 9.1 (8.6-10.0) mg/dL Total Bilirubin 0.60 (0.2-1.0) mg/dL AST 17 (10.0-50.0) U/L ALT 44 H (<41) U/L Alkaline Phosphatase 83 (40-129) U/L Total Protein 6.8 (6.6-8.7) g/dL Albumin 3.9 L (4.0-5.0) g/dL Globulin 2.9 (1.4-4.8) gm/dL Albumin/Globulin Ratio 1.3 (1.1-1.8) Lipase 20 (13-60) U/L Stool for White Cells No wbc's observed (NO WBC'S) Cryptosporid parvum Ag Not detected (NOT DETECT) Giardia lamblia Ag Not detected (NOT DETECT) Disposition Clinical Impression: Diarrhea Qualifiers: Diarrhea type: unspecified type Qualified Code(s): R19.7 - Diarrhea, unspecified Disposition: Home, Self-Care Condition: (2) Stable Instructions: Acute Diarrhea (ED) Additional Instructions: Please drink plenty of fluids and use an OTC anti-diarrheal medicine as needed. Please see your family doctor for recheck later this week if not better and return to the ER for any worsening symptoms. Please also see your family doctor later this month to have your liver enzymes rechecked. Forms: Patient Portal Access Quality - Quality Measures Quality Measures: N/A - Blood Pressure Screening View Details: Yes Does Patient Have Any of the Following: No Blood Pressure Classification: Hypertensive Reading Systolic Measurement: 143 Diastolic Measurement: 97 Screening for High Blood Pressure: < First Hypertensive BP, F/U Documented > [ G8950] First Hypertensive Follow-up Interventions: Referral to alternative/primary care provider.
== END 2018-12-27 08:52 | disposition home or self-care (01) ==
LOC: ER 07:25
DX: R19.7 Diarrhea, unspecified (principal); R11.2 Nausea with vomiting, unspecified; I10 Essential (primary) hypertension; F17.210 Nicotine dependence, cigarettes, uncomplicated
CPT/HCPCS: 80053; 83690; 85025; 87329; 87427; 89055; 99283